=== PATIENT | male | born 1940 | race Caucasian/White ===

== ENCOUNTER → 2017-05-03 11:34 | Outpatient (CLI) | payer MEDICARE, OTHER ==
[2017-05-03 11:56] LABS: BASOPHILS 0.2 % (0-2); HEMATOCRIT 43.5 % (42.0-54.0); HEMOGLOBIN 14.1 g/dL (13.5-17.5); IMMATURE GRANULOCYTES 0.3 % (0-5); LYMPHOCYTES 23.3 % (15-50); MCH 29.7 pg (26.0-34.0); MCHC 32.4 g/dL (31.0-37.0); MCV 91.6 fL (80.0-100.0); MEAN PLATELET VOLUME 10.4 fL (7.4-10.4); MONOCYTES 9.2 % (2-11); PLATELET COUNT 194 10x3/uL (130-400); RBC 4.75 10x6/uL (4.20-6.10); RDW 15.6 % (11.5-14.5); WBC 9.8 10x3/uL (4.8-10.8)
[2017-05-03 12:06] LABS: HEMOGLOBIN A1C 7.9 % (4.8-6.0)
[2017-05-03 12:23] LABS: CHOL - HDL RATIO 3.7 ratio (2.3-4.9); LDL-HDL RATIO 1.5 ratio (1.5-3.5); THYROID STIMULATING HORMONE 5.77 uIU/mL (0.36-3.74)
== END | disposition home or self-care (01) ==
LOC: D.LAB 10:15
PROVIDERS: Family Medicine
DX: E11.9 Type 2 diabetes mellitus without complications (principal); E78.4 Other hyperlipidemia; I10 Essential (primary) hypertension; E03.9 Hypothyroidism, unspecified

== ENCOUNTER → 2017-12-07 15:41 | Outpatient (CLI) | payer MEDICARE, OTHER ==
[2017-12-07 16:30] LABS: HEMOGLOBIN A1C 6.9 % (4.8-6.0)
== END | disposition home or self-care (01) ==
LOC: D.LAB 15:41
PROVIDERS: Family Medicine
DX: E11.9 Type 2 diabetes mellitus without complications (principal)

== ENCOUNTER → 2018-09-25 09:51 | Outpatient (CLI) | payer MEDICARE, OTHER ==
[2018-09-25 10:35] LABS: BASOPHILS 0.4 % (0-2); EOSINOPHILS 5.9 % (0-7); HEMATOCRIT 43.6 % (42.0-54.0); HEMOGLOBIN 14.3 g/dL (13.5-17.5); IMMATURE GRANULOCYTES 0.4 % (0-5); MCH 30.2 pg (26.0-34.0); MCHC 32.8 g/dL (31.0-37.0); MCV 92.2 fL (80.0-100.0); MEAN PLATELET VOLUME 12.1 fL (7.4-10.4); MONOCYTES 9.3 % (2-11); PLATELET COUNT 178 10x3/uL (130-400); RBC 4.73 10x6/uL (4.20-6.10); RDW 14.8 % (11.5-14.5)
[2018-09-25 10:45] LABS: CREATININE - URINE 74.2 mg/dL (30-125)
[2018-09-25 10:46] LABS: APPEARANCE CLEAR (CLEAR); BACTERIA NONE SEEN /hpf (NONE SEEN); BILIRUBIN NEGATIVE (NEGATIVE); COLOR YELLOW (YELLOW); EPITHELIAL CELLS NSEEN /hpf (0-5); GLUCOSE 1000 mg/dL (NEGATIVE); KETONE NEGATIVE (NEGATIVE); NITRITE NEGATIVE (NEGATIVE); PROTEIN 3+ mg/dL (NEGATIVE); PROTEIN - URINE 300.3 mg/dL (0.0-11.9); RED CELLS - URINE NONE SEEN /hpf (0-5); SPECIFIC GRAVITY 1.015 (1.005-1.020); UROBILINOGEN NORMAL (NORMAL); WHITE CELLS - URINE NSEEN /hpf (0-5)
[2018-09-25 10:57] LABS: ALBUMIN 3.5 g/dL (3.4-5.0); BILIRUBIN - TOTAL 0.26 mg/dL (0.2-1.3); CALCIUM 9.3 mg/dL (8.5-10.1); CARBON DIOXIDE 29.3 mmol/L (21.0-32.0); CHOL - HDL RATIO 3.8 ratio (2.3-4.9); CREATININE - SERUM 1.3 mg/dL (0.6-1.3); LDL-HDL RATIO 1.4 ratio (1.5-3.5); POTASSIUM - SERUM 4.3 mmol/L (3.5-5.1); PROTEIN - SERUM 7.4 g/dL (6.4-8.2); THYROID STIMULATING HORMONE 3.6 uIU/mL (0.36-3.74)
== END | disposition home or self-care (01) ==
LOC: D.LAB 09:51
PROVIDERS: Family Medicine
DX: I25.10 Atherosclerotic heart disease of native coronary artery without angina pectoris (principal); E11.9 Type 2 diabetes mellitus without complications; I12.9 Hypertensive chronic kidney disease with stage 1 through stage 4 chronic kidney disease, or unspecified chronic kidney disease; N18.3 Chronic kidney disease, stage 3 (moderate)

== ENCOUNTER → 2018-12-28 09:02 | Outpatient (CLI) | payer MEDICARE, OTHER ==
[2018-12-28 09:59] LABS: HEMATOCRIT 44.7 % (42.0-54.0); HEMOGLOBIN 14.8 g/dL (13.5-17.5); LYMPHOCYTES 27.5 % (15-50); MCH 28.6 pg (26.0-34.0); MCHC 33.1 g/dL (31.0-37.0); MCV 86.5 fL (80.0-100.0); MEAN PLATELET VOLUME 11.2 fL (7.4-10.4); NEUTROPHILS 61.5 % (40-80); PLATELET COUNT 174 10x3/uL (130-400); RBC 5.17 10x6/uL (4.20-6.10); RDW 14.8 % (11.5-14.5); WBC 8.8 10x3/uL (4.8-10.8)
[2018-12-28 10:24] LABS: ANION GAP 17.6 mmol/L (8-16); BILIRUBIN - TOTAL 0.3 mg/dL (0.2-1.3); CALCIUM 9.1 mg/dL (8.5-10.1); CARBON DIOXIDE 23.1 mmol/L (21.0-32.0); CHOL - HDL RATIO 3.5 ratio (2.3-4.9); CREATININE - SERUM 1.6 mg/dL (0.6-1.3); LDL-HDL RATIO 1.3 ratio (1.5-3.5); POTASSIUM - SERUM 4.7 mmol/L (3.5-5.1); PROTEIN - SERUM 7.8 g/dL (6.4-8.2)
== END | disposition home or self-care (01) ==
LOC: D.LAB 09:02
PROVIDERS: Family Medicine
DX: I10 Essential (primary) hypertension (principal); E11.9 Type 2 diabetes mellitus without complications; Z00.00 Encounter for general adult medical examination without abnormal findings; I25.10 Atherosclerotic heart disease of native coronary artery without angina pectoris; K21.9 Gastro-esophageal reflux disease without esophagitis

== ENCOUNTER → 2019-10-30 11:34 | Outpatient (CLI) | payer MEDICARE, OTHER ==
[2019-10-30 12:09] LABS: BASOPHILS 0.2 % (0-2); EOSINOPHILS 6.1 % (0-7); HEMATOCRIT 45.8 % (42.0-54.0); HEMOGLOBIN 14.7 g/dL (13.5-17.5); IMMATURE GRANULOCYTES 0.3 % (0-5); MCH 29.6 pg (26.0-34.0); MCHC 32.1 g/dL (31.0-37.0); MCV 92.3 fL (80.0-100.0); MEAN PLATELET VOLUME 10.4 fL (7.4-10.4); MONOCYTES 7.3 % (2-11); NEUTROPHILS 62.1 % (40-80); PLATELET COUNT 192 10x3/uL (130-400); RBC 4.96 10x6/uL (4.20-6.10); RDW 15.6 % (11.5-14.5); WBC 9.6 10x3/uL (4.8-10.8)
[2019-10-30 12:46] LABS: ALBUMIN 3.5 g/dL (3.4-5.0); ALKALINE PHOSPHATASE 68 U/L (46-116); ALT (SGPT) 91 U/L (10-68); BILIRUBIN - TOTAL 0.31 mg/dL (0.2-1.3); CALC OSMOLALITY 287 mosm/kg (275-300); CALCIUM 9.4 mg/dL (8.5-10.1); CARBON DIOXIDE 27.7 mmol/L (21.0-32.0); CHLORIDE - SERUM 104 mmol/L (98-107); CHOL - HDL RATIO 4.5 ratio (2.3-4.9); CHOLESTEROL, TOTAL 138 mg/dL (0-200); CREATININE - SERUM 1.7 mg/dL (0.6-1.3); GLUCOSE 164 mg/dL (74-106); HDL CHOLESTEROL 31 mg/dL (32-96); POTASSIUM - SERUM 4.7 mmol/L (3.5-5.1); PROTEIN - SERUM 7.6 g/dL (6.4-8.2); SODIUM 140 mmol/L (136-145); THYROID STIMULATING HORMONE 4.69 uIU/mL (0.36-3.74); TRIGLYCERIDE 409 mg/dL (30-200); UREA NITROGEN 26 mg/dL (7-18); eGFR NON AFRICAN AMERICAN 42 mL/min (90-120)
[2019-10-30 12:49] LABS: SCREENING PSA (YEARLY) 0.49 ng/mL (0.00-4.00)
== END | disposition home or self-care (01) ==
LOC: D.LAB 11:34
PROVIDERS: ATTEND Family Medicine
DX: Z00.00 Encounter for general adult medical examination without abnormal findings (principal); I25.10 Atherosclerotic heart disease of native coronary artery without angina pectoris; N18.3 Chronic kidney disease, stage 3 (moderate); H81.09 Meniere's disease, unspecified ear; E78.3 Hyperchylomicronemia

== ENCOUNTER → 2021-01-15 08:59 | Outpatient (CLI) | payer MEDICARE, OTHER ==
[2021-01-15 09:26] LABS: HEMATOCRIT 37.5 % (42.0-54.0); HEMOGLOBIN 12.3 g/dL (13.5-17.5); LYMPHOCYTES 31.7 % (15-50); MCH 29.4 pg (26.0-34.0); MCHC 32.8 g/dL (31.0-37.0); MCV 89.5 fL (80.0-100.0); NEUTROPHILS 56.2 % (40-80); RBC 4.19 10x6/uL (4.20-6.10); RDW 14.6 % (11.5-14.5); WBC 8.9 10x3/uL (4.8-10.8)
[2021-01-15 09:31] LABS: PLATELET COUNT 290 10x3/uL (130-400)
[2021-01-15 09:32] LABS: CREATININE - URINE 128.7 mg/dL (30-125)
[2021-01-15 09:33] LABS: PRO/CRE RATIO URINE 2.7 mg/g; PROTEIN - URINE 344.4 mg/dL (0.0-11.9)
[2021-01-15 09:41] LABS: ALBUMIN 3.7 g/dL (3.4-5.0); ALKALINE PHOSPHATASE 64 U/L (30-120); ALT (SGPT) 26 U/L (10-68); BILIRUBIN - TOTAL 0.22 mg/dL (0.2-1.3); CALC OSMOLALITY 285 mosm/kg (275-300); CALCIUM 9.1 mg/dL (8.5-10.1); CARBON DIOXIDE 24.5 mmol/L (21.0-32.0); CHLORIDE - SERUM 103 mmol/L (98-107); CHOLESTEROL, TOTAL 170 mg/dL (0-200); CREATININE - SERUM 1.8 mg/dL (0.6-1.3); GLUCOSE 173 mg/dL (74-106); HDL CHOLESTEROL 34 mg/dL (32-96); POTASSIUM - SERUM 4.8 mmol/L (3.5-5.1); SODIUM 138 mmol/L (136-145); TRIGLYCERIDE 472 mg/dL (30-200); UREA NITROGEN 28 mg/dL (7-18); eGFR NON AFRICAN AMERICAN 39 mL/min (90-120)
== END | disposition home or self-care (01) ==
LOC: D.LAB 08:59
PROVIDERS: ATTEND Family Medicine
DX: Z00.00 Encounter for general adult medical examination without abnormal findings (principal); I25.10 Atherosclerotic heart disease of native coronary artery without angina pectoris; E11.9 Type 2 diabetes mellitus without complications

== ENCOUNTER → 2021-01-30 14:56 | Outpatient (CLI) | payer MEDICARE, OTHER | END | disposition home or self-care (01) | LOC: D.RAD 14:56 | PROVIDERS: ATTEND Family Medicine | DX: R05 Cough (principal) ==